=== PATIENT | male | born 2000 | race Hispanic/Latino ===

== ENCOUNTER 2025-09-10 14:05 | Emergency (ER) | payer SELFPAY ==
[2025-09-10] MEDS ORDERED: Lidocaine Viscous Sol 2% 15 ml UD Cup ONE (14:49)
[2025-09-10] MEDS ORDERED: Milk Of Magnesia 30 ML UDCUP ONE (14:49)
[2025-09-10] MEDS ORDERED: Famotidine 20 MG TAB ONE ×2 (14:50→14:56)
[2025-09-10 15:14] LABS: #Basophils 0.05 10x3/uL (0.0-0.2); #Eosinophils 0.03 10x3/uL (0.0-0.5); #Monocytes 0.99 10x3/uL (0.0-1.1); #Neutrophils 10.95 10x3/uL (1.5-8.4); %Basophils 0.3 % (0.0-2.0); %Eosinophils 0.2 % (0.0-6.0); %Lymphocytes 29.3 % (18.0-47.0); %Monocytes 5.8 % (0.0-10.0); %Neutrophils 64.0 % (40.0-75.0); Hematocrit 42.8 % (38.8-50.0); Hemoglobin 14.6 g/dL (13.5-17.5); Mean Corpuscular Hemoglobin 30.7 pg (27.0-33.0); Mean Corpuscular Volume 89.9 fL (81.2-95.1); Platelet Count 348 10x3/uL (150-450); Red Blood Cell (RBC) Count 4.76 10x6/uL (4.32-5.72); White Blood Cell (WBC) Count 17.10 10x3/uL (3.5-10.5)
[2025-09-10] MEDS ORDERED: Ondansetron PF 4 MG/2 ML Vial ONE (15:14)
[2025-09-10] MEDS ORDERED: Famotidine/PF 20 mg/2ml Vial ONE (15:14)
[2025-09-10 15:25] LABS: ALT (SGPT) 44 U/L (Less than 45); AST (SGOT) 36 U/L (11-34); Albumin 4.5 g/dL (3.1-4.5); Alkaline Phosphatase 123 U/L (40-110); Anion Gap 16 mmol/L (10-20); BUN (Urea Nitrogen) 20 mg/dL (8.9-20.6); Bilirubin, Total 1.0 mg/dL (0.3-1.2); Calc. Creatinine Clearance 0 mL/min (70-130); Calcium 9.3 mg/dL (7.8-10.44); Carbon Dioxide 22 mmol/L (22-29); Chloride 99 mmol/L (98-107); Globulin 3.7 g/dL (2.4-3.5); Glucose 141 mg/dL (70-105); Lipase 15 U/L (8-78); Potassium 3.3 mmol/L (3.5-5.1); Sodium 134 mmol/L (136-145)
[2025-09-10] MEDS ORDERED: Ketorolac Tromethamine 30 MG (1 mL) VIAL ONE (16:28)
== END 2025-09-10 16:42 | disposition home or self-care (01) ==
LOC: CSHERS 14:05
DX: R10.10 Upper abdominal pain, unspecified (principal); R11.2 Nausea with vomiting, unspecified
CPT/HCPCS: 36415; 80053; 83690; 85025; 93005; 96361; 96374; 96375; J1308; J1885; J2405; Q0162